=== PATIENT | male | born 1975 | race Caucasian/White ===

== ENCOUNTER 2024-12-17 05:32 | Day surgery (SDC) | payer OTHER ==
[2024-12-14 09:35] VITALS: BMI 33.9
[2024-12-17 13:30] VITALS: RESP 18
[2024-12-17] MEDS ORDERED: MIDAZOLAM HCL 2 MG/2 ML SINGLE DOSE VIAL ONE (15:28)
[2024-12-17 17:42] VITALS: BP 129/70; PULSE 71; TEMP 96.9
== END 2024-12-17 17:10 | disposition home or self-care (01) ==
LOC: JASU-SURG 05:32
PROVIDERS: ATTEND Urology
PROC: 0TF4XZZ Fragmentation in Left Kidney Pelvis, External Approach (ICD-10-PCS; principal; 2024-12-17 15:30)
DX: N20.0 Calculus of kidney (principal)